=== PATIENT | male | born 1945 | race Caucasian/White ===

== ENCOUNTER 2018-04-11 10:56 | Day surgery (SDC) | payer BC, MEDICARE, OTHER ==
[2018-04-11] MEDS ORDERED: Lactated Ringers 1,000 ML IV SCH (11:15)
[2018-04-11] MEDS ORDERED: Sodium Chloride 0.9% 10 ML Syringe FLUSH PRN (11:15)
[2018-04-11] MEDS ORDERED: fentaNYL 100 MCG/2 ML SDV ONE ×2 (12:18→12:26)
[2018-04-11] MEDS ORDERED: Midazolam 1 MG/ML 2 ML SDV ONE ×2 (12:18→12:26)
[2018-04-11] MEDS ORDERED: Propofol 200 MG/20 ML SDV ONE ×2 (12:18→12:26)
--- NOTE | 2018-04-11 12:28 | PCM.HPR ---
H & P Addendum review - H & P Addendum Review Date of Original H & P: 04/04/18 Date Reviewed: 04/11/18 Time Reviewed: 12:28 Patient was Examined: No Changes
--- NOTE | 2018-04-11 16:33 | OR ---
Date of Procedure: 04/11/2018 PREOPERATIVE DIAGNOSIS: History of colon polyps. POSTOPERATIVE DIAGNOSIS: Sigmoid diverticulosis. PROCEDURE: Colonoscopy. ANESTHESIA: IV sedation. HISTORY: This 73-year-old gentleman has been scheduled for colonoscopy. He has a history of colon polyps. Last colonoscopy was in 2013. I met with the patient and his prior to the procedure to review risks and complications, and informed consent was obtained. DESCRIPTION OF PROCEDURE: The patient was brought to the procedure room where he was placed on his left side and IV sedation administered. Digital rectal exam was performed which was normal. Colonoscope was inserted and advanced to the level of the cecum without difficulty. Cecal position was confirmed by identifying the appendiceal lumen and ileocecal valve. Prep was good and surfaces were well visualized. Upon withdrawing the scope, the ascending, transverse, and descending colon were normal in appearance. Sigmoid colon had multiple diverticula present. Rectum was normal and retroflexion was normal. Air was removed and the scope withdrawn. The patient tolerated the procedure well and returned to recovery in stable condition. Recommend surveillance colonoscopy again in 5 years if clinically indicated. MODL TERESA OCHOA MD /[id number]
== END 2018-04-11 14:14 | disposition home or self-care (01) ==
LOC: LL.SDS 10:56
PROVIDERS: ATTEND Surgery
DX: Z12.11 Encounter for screening for malignant neoplasm of colon (principal); K57.30 Diverticulosis of large intestine without perforation or abscess without bleeding; I10 Essential (primary) hypertension; G30.9 Alzheimer's disease, unspecified; Z79.899 Other long term (current) drug therapy; Z98.890 Other specified postprocedural states; Z86.010 Personal history of colon polyps
CPT/HCPCS: J2250; J2704; J3010; J7120